=== PATIENT | male | born 1980 | race Hispanic/Latino ===

== ENCOUNTER 2017-09-07 01:45 | Emergency (ER) | payer OTHER | END 2017-09-07 02:11 | disposition home or self-care (01) | LOC: EDH 01:45 | DX: Z02.89 Encounter for other administrative examinations (principal) ==

== ENCOUNTER 2018-04-02 16:10 | Emergency (ER) | payer OTHER ==
[2018-04-02] MEDS ORDERED: LORAZEPAM 2 MG/ML 1 ML VIAL ONE ×2 (16:21→16:45)
[2018-04-02] MEDS ORDERED: PHENYTOIN SODIUM 50 MG/ML 5ML VIAL ONE (16:22)
[2018-04-02] MEDS ORDERED: SODIUM CHLORIDE 0.9% 250 ML IV ONE (16:22)
[2018-04-02 17:43] LABS: BASOPHILS % (AUTO) 0.5 % (0.0-5.0); EOSINOPHILS % (AUTO) 1.3 % (0.0-8.0); LYMPHOCYTES % (AUTO) 9.3 % (21.0-51.0); MEAN CORPUSCULAR HEMOGLOBIN 29.9 pg (27.0-33.0); MEAN CORPUSCULAR HGB CONC 33.8 g/dL (32.0-36.0); MEAN CORPUSCULAR VOLUME 88.3 fL (79-99); MONOCYTES % (AUTO) 5.1 % (3.0-13.0); NEUTROPHILS % (AUTO) 83.8 % (40.0-77.0); NUCLEATED RED BLOOD CELLS 0.1 % (0.0-0.19); PLATELET COUNT (AUTO) 281 K/uL (130-400); RED BLOOD CELL COUNT(AUTO) 4.87 MIL/uL (4.50-6.20); RED CELL DISTRIBUTION WIDTH 13.5 % (11.0-15.5); WHITE BLOOD COUNT (AUTO) 9.9 K/uL (4.8-10.8)
[2018-04-02 17:55] LABS: CARBON DIOXIDE 25 mmol/L (21-32); CHLORIDE 106 mmol/L (101-111); CREATININE 1.3 mg/dL (0.5-1.5); GLOMERULAR FILTR. RATE CALC 66 mL/min (>60); GLUCOSE,RANDOM 109 mg/dL (70-105); SODIUM SERUM 144 mmol/L (136-145); UREA NITROGEN, BLOOD 11 mg/dL (7-18)
[2018-04-02 18:01] LABS: ALANINE AMINOTRANSFERASE 27 U/L (12-78); ALBUMIN 3.9 g/dL (3.5-5.0); ASPARTATE AMINOTRANSFERASE 17 U/L (10-37); BILIRUBIN,TOTAL 0.3 mg/dL (0.2-1.0); CREATINE KINASE, TOTAL 161 U/L (21-232); PHENYTOIN (DILANTIN) 15.5 mcg/mL (10.0-20.0); TOTAL PROTEIN, SERUM 7.6 g/dL (6.0-8.3)
[2018-04-02 18:04] LABS: ALCOHOL, BLOOD < 3 mg/dL (0-10)
== END 2018-04-02 18:41 | disposition home or self-care (01) ==
LOC: EDH 16:10
DX: G40.802 Other epilepsy, not intractable, without status epilepticus (principal); F19.10 Other psychoactive substance abuse, uncomplicated; Z79.899 Other long term (current) drug therapy
CPT/HCPCS: 36415; 80053; 80185; 82550; 84484; 85025; 93005; 96365; 96366; 99284; G0480; J1165; J2060; J7030

== ENCOUNTER 2018-08-20 13:54 | Emergency (ER) | payer OTHER ==
[~2018-08-20] VITALS: Ht 167.6 cm; Wt 79.4 kg
[2018-08-20 14:24] LABS: EOSINOPHILS % (AUTO) 5.1 % (0.0-8.0); HEMATOCRIT 46.2 % (42-54); LYMPHOCYTES % (AUTO) 24.6 % (21.0-51.0); MEAN CORPUSCULAR HGB CONC 34.3 g/dL (32.0-36.0); MEAN CORPUSCULAR VOLUME 87.2 fL (79-99); MONOCYTES % (AUTO) 6.5 % (3.0-13.0); NEUTROPHILS % (AUTO) 62.8 % (40.0-77.0); NUCLEATED RED BLOOD CELLS 0.1 % (0.0-0.19); PLATELET COUNT (AUTO) 245 K/uL (130-400); RED CELL DISTRIBUTION WIDTH 13.7 % (11.0-15.5)
[2018-08-20 14:36] LABS: CARBON DIOXIDE 26 mmol/L (21-32); CHLORIDE 104 mmol/L (101-111); CREATININE 1.1 mg/dL (0.5-1.5); GLOMERULAR FILTR. RATE CALC 81 mL/min (>60); GLUCOSE,RANDOM 96 mg/dL (70-105); POTASSIUM 3.6 mmol/L (3.5-5.1); SODIUM SERUM 141 mmol/L (136-145); UREA NITROGEN, BLOOD 11 mg/dL (7-18)
[2018-08-20 14:38] LABS: APPEARANCE,URINE Clear (CLEAR); BILIRUBIN,URINE Small (NEGATIVE); COLOR,URINE Dark Yellow (YELLOW); GLUCOSE, URINE (UA) Negative (NEGATIVE); KETONES,URINE 15 mg/dL (NEGATIVE); LEUKOCYTE ESTERASE ,URINE Trace (NEGATIVE); NITRATE,URINE Negative (NEGATIVE); OCCULT BLOOD,URINE Negative (NEGATIVE); PH,URINE 6.5 (5.0-8.0); PROTEIN,URINE POS 2+ mg/dL (NEGATIVE)
[2018-08-20 14:40] LABS: ALANINE AMINOTRANSFERASE 22 U/L (12-78); ALBUMIN 4.3 g/dL (3.5-5.0); ASPARTATE AMINOTRANSFERASE 15 U/L (10-37); BILIRUBIN,TOTAL 0.5 mg/dL (0.2-1.0); TOTAL PROTEIN, SERUM 7.9 g/dL (6.0-8.3)
[2018-08-20 14:41] LABS: PHENYTOIN (DILANTIN) < 0.5 mcg/mL (10.0-20.0)
[2018-08-20 14:44] LABS: AMPHET/METH SCREEN,URINE NEGATIVE (NEGATIVE); BARBITURATE SCREEN, URINE NEGATIVE (NEGATIVE); BENZODIAZEPINES SCREEN,URINE NEGATIVE (NEGATIVE); CANNABINOID SCREEN,URINE POSITIVE (NEGATIVE); COCAINE SCREEN,URINE NEGATIVE (NEGATIVE); OPIATE SCREEN,URINE NEGATIVE (NEGATIVE); PHENCYCLIDINE SCREEN,URINE NEGATIVE (NEGATIVE)
[2018-08-20 14:48] LABS: BACTERIA,URINE Rare /HPF (None Seen); MUCUS,URINE Moderate LPF (None Seen); RBC,URINE 0-1 /HPF (0-1); SQUAMOUS EPITHELIAL CELL,UR Rare /HPF (0-2)
[2018-08-20] MEDS ORDERED: SODIUM CHLORIDE 0.9% 1000ML 1,000 ML IV ONE (14:55)
[2018-08-20] MEDS ORDERED: KETOROLAC TROMETHAMINE 30MG/ML ONE (15:24)
[2018-08-20] MEDS ORDERED: PHENYTOIN SODIUM 100 MG ERCAP PO ONE (15:55)
[2018-08-20] MEDS ORDERED: PHENYTOIN SODIUM 50 MG/ML 5ML VIAL ONE (15:56)
[2018-08-20] MEDS ORDERED: PHENYTOIN SODIUM INJ SCH (16:15)
[2018-08-20] MEDS ORDERED: SODIUM CHLORIDE 0.9% INJ SCH (16:15)
== END 2018-08-20 17:11 | disposition home or self-care (01) ==
LOC: EDH 13:54
DX: S46.902A Unspecified injury of unspecified muscle, fascia and tendon at shoulder and upper arm level, left arm, initial encounter (principal); G40.909 Epilepsy, unspecified, not intractable, without status epilepticus; Z72.0 Tobacco use; W22.8XXA Striking against or struck by other objects, initial encounter; Y93.89 Activity, other specified; Y92.89 Other specified places as the place of occurrence of the external cause; Y99.8 Other external cause status
CPT/HCPCS: 36415; 73030; 80053; 80185; 80305; 81001; 85025; 93005; 96365; 96375; 99285; J1165; J1885; J7030

== ENCOUNTER 2020-04-17 12:28 | Emergency (ER) | payer MEDICAID ==
[2020-04-17] MEDS ORDERED: TETANUS/DIPHTHERIA TOXOID [ADULT] 0.5 ML VIAL IM ONE (12:44)
[2020-04-17] MEDS ORDERED: LIDOCAINE HCL 2% 20ML ONE (12:44)
== END 2020-04-17 15:46 | disposition home or self-care (01) ==
LOC: EDH 12:28
DX: S01.111A Laceration without foreign body of right eyelid and periocular area, initial encounter (principal); G40.909 Epilepsy, unspecified, not intractable, without status epilepticus; W18.39XA Other fall on same level, initial encounter; Y93.89 Activity, other specified; Y92.89 Other specified places as the place of occurrence of the external cause; Y99.8 Other external cause status
CPT/HCPCS: 12011; 70450; 90471; 90714; 99284; J3490

== ENCOUNTER 2020-04-23 16:28 | Emergency (ER) | payer MEDICAID | END 2020-04-23 17:06 | disposition home or self-care (01) | LOC: EDH 16:28 | DX: S01.111D Laceration without foreign body of right eyelid and periocular area, subsequent encounter (principal); G40.909 Epilepsy, unspecified, not intractable, without status epilepticus; F19.10 Other psychoactive substance abuse, uncomplicated; Z72.0 Tobacco use; X58.XXXD Exposure to other specified factors, subsequent encounter | CPT/HCPCS: 99281 ==

== ENCOUNTER 2021-10-24 10:05 | Emergency (ER) | payer MEDICAID ==
[~2021-10-24] VITALS: Ht 167.6 cm; Wt 71.2 kg
[2021-10-24] MEDS ORDERED: KETOROLAC 30MG VIAL (30MG/ML) IM STA (10:25)
[2021-10-24] MEDS ORDERED: LEVETIRACETAM 500 MG/5 ML SD VIAL IV STA (10:28)
[2021-10-24] MEDS ORDERED: ORPHENADRINE CITRATE 30 MG/ML ML IM ONE (10:30)
[2021-10-24] MEDS ORDERED: LEVETIRACETAM 500 MG TABLET PO STA (11:32)
[2021-10-24] MEDS ORDERED: LEVE-43 PO (11:34)
[2021-10-24] MEDS ORDERED: NAPR375T6 PO (11:34)
[2021-10-24 11:38] VITALS: BP 126/65
== END 2021-10-24 11:45 | disposition home or self-care (01) ==
LOC: EDH 10:05
DX: S39.012A Strain of muscle, fascia and tendon of lower back, initial encounter (principal); G40.909 Epilepsy, unspecified, not intractable, without status epilepticus; F17.200 Nicotine dependence, unspecified, uncomplicated; Z98.890 Other specified postprocedural states; X50.0XXA Overexertion from strenuous movement or load, initial encounter; Y93.89 Activity, other specified; Y92.89 Other specified places as the place of occurrence of the external cause; Y99.8 Other external cause status
CPT/HCPCS: 99284; 72100; 96372 ×2; J1885; J2360

== ENCOUNTER 2022-09-01 14:15 | Emergency (ER) | payer MEDICAID ==
[~2022-09-01] VITALS: Ht 170.2 cm; Wt 72.6 kg
[~2022-09-01 14:15] MED LIST: LEVE-43 PO; NAPR375T6 PO
[2022-09-01] MEDS ORDERED: MORPHINE 2 MG SYG IVP ONE (14:30)
[2022-09-01] MEDS ORDERED: ONDANSETRON 4MG INJ IVP ONE (14:30)
[2022-09-01] MEDS ORDERED: 0.9%NACL 1000ML 1,000 ML IV ONE (14:30)
[2022-09-01 14:33] LABS: BASOPHILS % (AUTO) 0.9 % (0.0-5.0); EOSINOPHILS % (AUTO) 5.5 % (0.0-8.0); LYMPHOCYTES % (AUTO) 35.4 % (21.0-51.0); MEAN CORPUSCULAR HEMOGLOBIN 30.1 pg (27.0-33.0); MEAN CORPUSCULAR HGB CONC 35.7 g/dL (32.0-36.0); MEAN CORPUSCULAR VOLUME 84.5 fL (79-99); NEUTROPHILS % (AUTO) 50.9 % (40.0-77.0); PLATELET COUNT (AUTO) 288 K/uL (130-400); RED BLOOD CELL COUNT(AUTO) 5.21 MIL/uL (4.50-6.20); RED CELL DISTRIBUTION WIDTH 11.9 % (11.0-15.5); WHITE BLOOD COUNT (AUTO) 6.4 K/uL (4.8-10.8)
[2022-09-01 14:43] LABS: CREATININE 1.3 mg/dL (0.5-1.5); POTASSIUM 3.8 mmol/L (3.5-5.1)
[2022-09-01 14:48] LABS: ALBUMIN 4.7 g/dL (3.5-5.0); TOTAL PROTEIN, SERUM 8.2 g/dL (6.0-8.3)
[2022-09-01 14:59] LABS: B-TYPE NATRIURETIC PEPTIDE < 5 pg/mL (0-100)
[2022-09-01] MEDS ORDERED: PANT40TA55 PO (17:17)
[2022-09-01 18:28] VITALS: BP 116/69
== END 2022-09-01 18:47 | disposition home or self-care (01) ==
LOC: EDH 14:15
DX: K29.00 Acute gastritis without bleeding (principal); G40.909 Epilepsy, unspecified, not intractable, without status epilepticus; Z79.899 Other long term (current) drug therapy; Z98.890 Other specified postprocedural states
CPT/HCPCS: 99285; 74176; 96374; 71045; 96361 ×2; 96375; 84484; 80053; 83880; 83690; 85025; 36415; 93005; J2270; J7030; J2405